=== PATIENT | female | born 1980 | race Two or more races ===

== ENCOUNTER 2020-07-08 10:16 | Emergency (ER) | payer MEDICAID ==
[~2020-07-08] VITALS: Ht 167.6 cm; Wt 68.2 kg
[~2020-07-08 10:16] MED LIST: ALBU6.7H3 IH; IBUP-1984 PO
[2020-07-08 10:22] VITALS: BP 149/102
[2020-07-08] MEDS ORDERED: COROTSUS LEFT EAR (10:25)
[2020-07-08] MEDS ORDERED: AMOX-115 PO (10:25)
== END 2020-07-08 10:37 | disposition home or self-care (01) ==
LOC: ER 10:17
DX: H66.92 Otitis media, unspecified, left ear (principal); Z79.2 Long term (current) use of antibiotics; Z79.899 Other long term (current) drug therapy
CPT/HCPCS: 99283

== ENCOUNTER 2020-08-15 22:10 | Emergency (ER) | payer MEDICAID ==
[~2020-08-15 22:10] MED LIST changes: +COROTSUS LEFT EAR
== END 2020-08-15 22:48 | disposition left against medical advice (07) ==
LOC: ER 22:11
DX: Z03.818 Encounter for observation for suspected exposure to other biological agents ruled out (principal); Z53.21 Procedure and treatment not carried out due to patient leaving prior to being seen by health care provider

== ENCOUNTER 2021-04-25 12:03 | Emergency (ER) | payer MEDICAID ==
[~2021-04-25] VITALS: Ht 165.1 cm; Wt 68.4 kg
[2021-04-25 12:12] VITALS: BP 138/77
== END 2021-04-25 14:43 | disposition home or self-care (01) ==
LOC: ER 12:03
DX: M25.561 Pain in right knee (principal); M25.562 Pain in left knee; W18.39XA Other fall on same level, initial encounter; Y93.89 Activity, other specified; Y92.89 Other specified places as the place of occurrence of the external cause; Y99.8 Other external cause status
CPT/HCPCS: 73564; 99283; 99284

== ENCOUNTER 2022-02-10 11:02 | Emergency (ER) | payer MEDICAID ==
[~2022-02-10] VITALS: Ht 167.6 cm; Wt 68.2 kg
[2022-02-10 11:37] LABS: BASOPHILS % (AUTO) 0.5 % (0-1); EOSINOPHILS % (AUTO) 0.4 % (0-6); HEMOGLOBIN 12.3 g/dl (12.0-16.0); LYMPHOCYTES # (AUTO) 1.6 X10'3 (1.1-4.8); MEAN CORPUSCULAR HEMOGLOBIN 30.2 PG (27.0-31.0); MEAN CORPUSCULAR HGB CONC 33.3 g/dL (33.0-36.5); MEAN CORPUSCULAR VOLUME 90.8 FL (78-98); MEAN PLATELET VOLUME 10.3 FL (7.4-10.4); MONOCYTES # (AUTO) 0.8 X10'3 (0-0.9); MONOCYTES % (AUTO) 9.2 % (2-12); NEUTROPHILS # (AUTO) 5.8 X10'3 (1.8-7.7); NEUTROPHILS % (AUTO) 69.9 % (42-75); PLATELET COUNT 124 X10'3 (140-440); RED BLOOD COUNT 4.08 X10'6 (4.20-5.60); RED CELL DISTRIBUTION WIDTH 14.6 % (11.5-14.5); WHITE BLOOD COUNT 8.2 X10'3 (4.5-11.0)
[2022-02-10 12:02] LABS: ALANINE AMINOTRANSFERASE 21 U/L (12-78); ALBUMIN 3.8 G/DL (3.4-5.0); ALKALINE PHOSPHATASE 95 IU/L (46-116); ANION GAP 10 (8-16); ASPARTATE AMINO TRANSFERASE 18 U/L (10-37); BILIRUBIN,TOTAL 0.4 MG/DL (0.1-1.0); BLOOD UREA NITROGEN 8 MG/DL (7-18); BUN/CREATININE RATIO 16.3 (6.6-38.0); C-REACTIVE PROTEIN 6.82 MG/DL (0.0-0.5); CALCIUM 8.5 MG/DL (8.5-10.1); CHLORIDE 106 MMOL/L (99-107); CREATININE 0.49 MG/DL (0.40-0.90); GLUCOSE 104 MG/DL (70-104); SODIUM 139 MMOL/L (135-145); TOTAL CARBON DIOXIDE 22.7 MMOL/L (24-32); TOTAL PROTEIN 7.5 G/DL (6.4-8.2); eGFR > 90 ML/MIN
[2022-02-10] MEDS ORDERED: piperacillin/tazo 3.375gm/50ml 50 ML IV ONE (12:10)
[2022-02-10] MEDS ORDERED: amox tr/potassium clavulanate 875/125mg TAB PO ONE (12:10)
[2022-02-10] MEDS ORDERED: iohexol 300mg/ml 100ml inj. ONE (12:23)
--- NOTE | 2022-02-10 12:48 | NUR ---
Pt to CT
[2022-02-10] MEDS ORDERED: HYDR-3972 PO (14:06)
[2022-02-10] MEDS ORDERED: AMOX-117 PO (14:06)
[2022-02-10 14:20] VITALS: BP 163/95
== END 2022-02-10 14:21 | disposition home or self-care (01) ==
LOC: ER 11:02
DX: L03.113 Cellulitis of right upper limb (principal); M79.601 Pain in right arm; Z79.899 Other long term (current) drug therapy; W55.01XA Bitten by cat, initial encounter; Y93.89 Activity, other specified; Y92.89 Other specified places as the place of occurrence of the external cause; Y99.8 Other external cause status
CPT/HCPCS: 36415; 73201; 80053; 84145; 85025; 85651; 86140; 96365; 99285; J2543; Q9967